=== PATIENT | male | born 2000 | race Caucasian/White ===

== ENCOUNTER 2020-09-03 12:27 | Emergency (ER) | payer OTHER ==
[2020-09-03] MEDS ORDERED: PEPCID AC20 MG PO (16:27)
== END 2020-09-03 16:35 | disposition home or self-care (01) ==
LOC: FER 12:27
DX: L25.9 Unspecified contact dermatitis, unspecified cause (principal); F17.210 Nicotine dependence, cigarettes, uncomplicated; F17.290 Nicotine dependence, other tobacco product, uncomplicated; F17.220 Nicotine dependence, chewing tobacco, uncomplicated
CPT/HCPCS: J1100; J1200; J7030